=== PATIENT | female | born 1985 | race Two or more races ===

== ENCOUNTER 2022-02-02 15:22 | Emergency (ER) | payer OTHER ==
[~2022-02-02] VITALS: Ht 165.1 cm; Wt 59.0 kg
--- NOTE | 2022-02-02 15:39 | NUR ---
FRIEND'S NUMBER [phone]
--- NOTE | 2022-02-02 15:51 | NUR ---
CALLED POISON CONTROL [phone] PER [place]: OBSERVATION 8-12 HOURS. START LINE WITH NS 150-200/H EKG: LOOK FOR PROLONG QTC IF > 500 CONSIDER GIVING 2 OF MAG. CHEMISTRY PANEL IF LITHIUM GREATER THAN 5 CALL POISON CONTROL BACK AND CONSIDER DIALYSIS CHECK ALCOHOL LEVEL AND HCG.
--- NOTE | 2022-02-02 16:00 | NUR ---
ASKED PATIENT TO PROVIDE URINE BUT PATIENT STATED THAT SHE DOESN'T FEEL THE URGE TO URINATE AT THIS TIME.
--- NOTE | 2022-02-02 16:02 | NUR ---
PHLEB TECH AT BEDSIDE FOR BLOOD DRAW. PATIENT W/ EXISTING IV LINE ON RIGHT HAND #20 INTACT AND PATENT.
--- NOTE | 2022-02-02 16:03 | NUR ---
EKG AT BEDSIDE
[2022-02-02 16:14] LABS: BASOPHILS % (AUTO) 0.7 % (0.0-2.0); EOSINOPHILS % (AUTO) 0.6 % (0.0-6.0); HEMATOCRIT 40 % (33-45); HEMOGLOBIN 13.5 g/dL (11.5-14.8); LYMPHOCYTES # (AUTO) 1.6 K/uL (0.8-4.8); LYMPHOCYTES % (AUTO) 31.8 % (20.0-44.0); MEAN CORPUSCULAR HGB CONC 34 g/dl (31.0-36.0); MEAN CORPUSCULAR VOLUME 100 fL (82-100); MONOCYTES # (AUTO) 0.7 K/uL (0.1-1.30); MONOCYTES % (AUTO) 13.3 % (2.0-12.0); NEUTROPHILS # (AUTO) 2.7 K/uL (1.8-8.9); NEUTROPHILS % (AUTO) 53.6 % (43.0-81.0); PLATELET COUNT (AUTO) 280 K/uL (150-450); WHITE BLOOD COUNT (AUTO) 5.1 K/uL (4.3-11.0)
[2022-02-02 16:30] LABS: ALANINE AMINOTRANSFERASE 102 U/L (12-78); ALBUMIN 4.2 g/dL (3.4-5.0); ALCOHOL, BLOOD 473 mg/dL (0-0); ALKALINE PHOSPHATASE 90 U/L (46-116); ASPARTATE AMINOTRANSFERASE 127 U/L (15-37); BILIRUBIN,DIRECT 0.1 mg/dL (0.0-0.2); BILIRUBIN,TOTAL 0.3 mg/dL (0.2-1.0); CARBON DIOXIDE 32 mmol/L (21-32); CHLORIDE 102 mmol/L (98-107); CREATININE 0.7 mg/dL (0.6-1.3); GLUCOSE 89 mg/dL (74-106); POTASSIUM 4.3 mmol/L (3.5-5.1); SODIUM SERUM 144 mmol/L (136-145); TOTAL PROTEIN, SERUM 8.6 g/dL (6.4-8.2); UREA NITROGEN, BLOOD 10 mg/dL (7-18)
--- NOTE | 2022-02-02 16:39 | NUR ---
URINE COLLECTED AND SENT TO THE LAB
[2022-02-02 16:43] LABS: ACETAMINOPHEN < 0 ug/ml (10-30)
[2022-02-02 17:36] LABS: BILIRUBIN,URINE NEGATIVE (NEGATIVE); COLOR,URINE YELLOW (YELLOW); LEUKOCYTE ESTERASE ,URINE NEGATIVE (NEGATIVE); NITRITE, URINE NEGATIVE (NEGATIVE); PROTEIN,URINE NEGATIVE (NEGATIVE); UGLUCOSE NEGATIVE (NEGATIVE); UROBILINOGEN,URINE 0.2 EU/dL (0.2)
--- NOTE | 2022-02-02 21:12 | NUR ---
covid swab collected sent to lab
--- NOTE | 2022-02-02 21:48 | NUR ---
POISON CONTROL CALLED FOR UPDATE REC REPEAT LITHIUM
--- NOTE | 2022-02-03 02:40 | NUR ---
adriana at bedside for eval.
[2022-02-03] MEDS ORDERED: LORAZEPAM INJ 2 MG/ML VIAL IV ONE (03:30)
[2022-02-03] MEDS ORDERED: LORAZEPAM INJ 2 MG/ML VIAL ONE (03:52)
[2022-02-03] MEDS ORDERED: LORAZEPAM 1 MG TABLET PO ONE (04:00)
--- NOTE | 2022-02-03 04:13 | NUR ---
ATIVAN IV WAS CHANGED BY THE MD TO PO D/T PT'S IV HAS BEEN ALREADY REMOVED.
[2022-02-03] MEDS ORDERED: LORAZEPAM 1 MG TABLET ONE (04:17)
--- NOTE | 2022-02-03 06:58 | NUR ---
SENT NEW ALCOHOL LEVEL TO [facility]. AWAITING FOR PT ACCEPETANCE FOR INPATIENT. ADMISSION
[2022-02-03] MEDS ORDERED: QUET100T PO (09:31)
[2022-02-03] MEDS ORDERED: LITH300T3 PO (09:31)
--- NOTE | 2022-02-03 11:27 | NUR ---
CALLED INTAKE FOR UPDATE, AWAITING FEEDBACK FROM [place].
--- NOTE | 2022-02-03 12:55 | NUR ---
PT ACCEPTED TO [facility] UND[address] FLORES CALL [phone] FOR REPORT PER
--- NOTE | 2022-02-03 13:05 | NUR ---
[facility] CALLED FOR TRANSPORT ETA 60 MINS PER JOSELINE.
--- NOTE | 2022-02-03 13:08 | NUR ---
REPORT GIVEN TO NURSE STARKS FROM [facility].
--- NOTE | 2022-02-03 13:36 | NUR ---
REPORT GIVEN TO AMBULANCE STAFF
[2022-02-03 13:39] VITALS: BP 128/81
--- NOTE | 2022-02-03 13:46 | NUR ---
PT TRANSPORTED TO [facility] IN STABLE CONDITION
== END 2022-02-03 13:47 ==
LOC: ER 15:33
DX: R45.851 Suicidal ideations (principal); F10.229 Alcohol dependence with intoxication, unspecified; Y90.8 Blood alcohol level of 240 mg/100 ml or more; Z20.822 Contact with and (suspected) exposure to COVID-19; F31.9 Bipolar disorder, unspecified; R74.01 Elevation of levels of liver transaminase levels; R94.31 Abnormal electrocardiogram [ECG] [EKG]
CPT/HCPCS: 36415 ×2; 80048; 80076; 80143; 80307; 80320 ×2; 81003; 83735; 84703; 85025; 87426; 93005; 99285; C9803; J2060; G0480